=== PATIENT | female | born 1985 | race Caucasian/White ===

== ENCOUNTER → 2021-06-27 | Outpatient (REF) | payer OTHER | LOC: M LAB REF 17:02 | PROVIDERS: ATTEND Nurse Practitioner Family | DX: D22.5 Melanocytic nevi of trunk (principal) ==

== ENCOUNTER → 2025-04-08 | Outpatient (CLI) | payer MEDICAID, OTHER, SELFPAY ==
[2025-04-08 13:47] LABS: ESTIMATED AVERAGE GLUCOSE 108.0 MG/DL (60-110)
[2025-04-08 14:01] LABS: ALT/SGPT 27 U/L (7.0-40); AST/SGOT 27 U/L (<34); CALCIUM LEVEL 9.0 MG/DL (8.5-10.1); CARBON DIOXIDE LEVEL 26 MMOL/L (20-31); CHLORIDE LEVEL 105 MMOL/L (98-107); CHOLESTEROL LEVEL 266 MG/DL (<200); CHOLESTEROL RISK RATIO 5.74 (<5); CREATININE FOR GFR 0.88 MG/DL (0.55-1.30); GLOMERULAR FILTRATION RATE 85.7 (>60); LDL CHOLESTEROL 182.3 MG/DL (<100); NON-HDL-C 219.7 MG/DL; POTASSIUM SERUM 4.8 MMOL/L (3.5-5.1); SODIUM LEVEL 139 MMOL/L (136-145); TRIGLYCERIDES LEVEL 187 MG/DL (<150)
[2025-04-08 14:03] LABS: TOTAL 25(OH) VITAMIN D 15.0 NG/ML (20.0-100.0)
[2025-04-08 14:28] LABS: HIV 1&2 SCREEN NEGATIVE (NEGATIVE)
[2025-04-08 14:35] LABS: HEPATITIS C VIRUS ABY INDEX < 0.02 INDEX (<0.8)
== END ==
LOC: M LAB 12:35
PROVIDERS: ATTEND Physician Assistant
DX: Z11.9 Encounter for screening for infectious and parasitic diseases, unspecified (principal); E66.9 Obesity, unspecified; E55.9 Vitamin D deficiency, unspecified